=== PATIENT | male | born 1940 | race Caucasian/White ===

== ENCOUNTER 2016-12-10 08:49 | Inpatient (IN) | END 2016-12-11 18:25 | disposition home or self-care (01) | DRG 473 | DX: M50.122 Cervical disc disorder at C5-C6 level with radiculopathy (principal); M48.02 Spinal stenosis, cervical region; I10 Essential (primary) hypertension; M50.123 Cervical disc disorder at C6-C7 level with radiculopathy; R13.10 Dysphagia, unspecified; E78.5 Hyperlipidemia, unspecified; Z87.442 Personal history of urinary calculi; R60.0 Localized edema ==